=== PATIENT | female | born 1970 | race Two or more races ===

== ENCOUNTER 2017-10-30 11:56 | Inpatient (IN) | payer SELFPAY ==
[~2017-10-30] VITALS: Ht 170.2 cm; Wt 72.1 kg
[2017-10-30 13:05] LABS: Basophils # (auto) 0.1 uL; Eosinophils # (auto) 0.1 uL; Lymphocytes # (auto) 1.8 uL; Red Cell Distribution Width 15.4 % (11.8-14.3)
[2017-10-30 13:06] LABS: Basophils % (auto) 1.3 % (0.0-2.0); Eosinophils % (auto) 1.1 % (0.0-7.0); Hematocrit 46.1 % (36.0-46.0); Lymphocytes % (auto) 15.4 % (10.0-50.0); Mean Corpuscular Hemoglobin 24.9 pg (28.0-32.0); Mean Corpuscular Hgb Conc. 32.6 g/dL (32.0-36.0); Mean Corpuscular Volume 76.6 fL (80.0-100.0); Monocytes # (auto) 0.7 uL; Monocytes % (auto) 6.1 % (0.0-12.0); Neutrophils # (auto) 8.8 uL; Neutrophils % (auto) 76.1 % (37.0-80.0); Nucleated Red Blood Cells % 0.1 %; Platelet Count (auto) 457 10^3/uL (140-450); Red Blood Cells 6.03 10^6/uL (4.0-5.20); White Blood Cell 11.6 10^3/uL (4.4-10.8)
[2017-10-30 13:21] LABS: Albumin 4.3 g/dL (3.4-5.0); Calcium 9.1 mg/dL (8.5-10.1); Magnesium 2.5 mg/dL (1.6-2.6); Potassium 3.7 mmol/L (3.5-5.1)
[2017-10-30 13:26] LABS: Bilirubin, Total 0.5 mg/dL (0.2-1.0); Total Protein 9.2 g/dL (6.4-8.2)
[2017-10-30 14:21] LABS: INR 1.05 (0.9-1.15); Partial Thromboplastin Time 28.3 sec (23.78-33.04); Prothrombin Time 11.2 sec (9.27-12.13)
[2017-10-30] MEDS ORDERED: ONDANSETRON HCL 4 MG/2 ML VIAL IV ONE (15:30)
[2017-10-30] MEDS ORDERED: ASPirin 81 mg TAB PO ONE (15:30)
[2017-10-30] MEDS ORDERED: MORPHINE SULFATE 8mg/ml INJ SDV IV ONE (15:30)
[2017-10-30] MEDS ORDERED: cefTRIAXone 1GM/10ml IVPUSH 10 ML IV ONE (19:00)
[2017-10-30] MEDS ORDERED: ZOLPIDEM TARTRATE 5 MG TAB PO PRN (19:15)
[2017-10-30] MEDS ORDERED: ALUM & MAG HYDROX-SIMETH LIQ(MAALOX) 30 ML PO ONE (19:15)
[2017-10-30] MEDS ORDERED: ONDANSETRON HCL 4 MG/2 ML VIAL IV PRN (19:15)
[2017-10-30] MEDS ORDERED: NITROGLYCERIN 0.4 MG SL TAB SL PRN ×2 (19:15)
[2017-10-30] MEDS ORDERED: MORPHINE SULFATE 8mg/ml INJ SDV IV PRN ×2 (19:15)
[2017-10-30] MEDS ORDERED: HYDROcodone-ACET 10/325MG TAB PO PRN (19:30)
[2017-10-30 19:52] LABS: Urine Bacteria MANY /hpf (None Seen); Urine Blood 1+ /uL (Negative); Urine Mucus FEW (None Seen); Urine Specific Gravity 1.023 (1.001-1.035); Urine WBC 69 /hpf (0 - 5)
[2017-10-30 20:09] LABS: % Iron Saturation 23.8 % (15-50)
[2017-10-30 20:29] VITALS: BP 124/78
[2017-10-30] MEDS: HYDROcodone-ACET 10/325MG TAB PO PRN (20:46)
[2017-10-30] MEDS: SODIUM CHLOR 0.9% PF (SALINE LOCK) 10ML VIAL/SYR IV SCH (22:00)
[2017-10-30] MEDS: ATORVASTATIN 20 MG TAB PO SCH (22:00)
[2017-10-30] MEDS: ENALAPRIL MALEATE 2.5 MG TAB PO SCH (22:00)
[2017-10-30] MEDS: CARVEDILOL 3.125 MG TAB PO SCH (22:00)
[2017-10-31] VITALS (8 sets, daily range): BP systolic 88–104; BP diastolic 53–64
[2017-10-31] MEDS: ALBUTEROL SULF 2.5 MG/0.5ML(0.5%) NEB SOLN NEB SCH ×4 (00:35→18:34)
[2017-10-31] MEDS: IPRATROPIUM BROM 0.5 MG/2.5ML INH SOL NEB SCH ×4 (00:35→18:34)
[2017-10-31] MEDS: HYDROcodone-ACET 10/325MG TAB PO PRN ×2 (02:51→20:43)
[2017-10-31 05:49] LABS: Basophils # (auto) 0.1 uL; Eosinophils # (auto) 0.3 uL; Hemoglobin 13.7 g/dL (12.2-16.2); Monocytes # (auto) 0.9 uL; Nucleated Red Blood Cells % 0.1 %
[2017-10-31 05:53] LABS: Basophils % (auto) 1.2 % (0.0-2.0); Eosinophils % (auto) 3.4 % (0.0-7.0); Hematocrit 40.8 % (36.0-46.0); Lymphocytes # (auto) 2.6 uL; Lymphocytes % (auto) 29.7 % (10.0-50.0); Mean Corpuscular Hemoglobin 25.7 pg (28.0-32.0); Mean Corpuscular Hgb Conc. 33.6 g/dL (32.0-36.0); Mean Corpuscular Volume 76.6 fL (80.0-100.0); Monocytes % (auto) 9.7 % (0.0-12.0); Platelet Count (auto) 407 10^3/uL (140-450); Red Blood Cells 5.33 10^6/uL (4.0-5.20); Red Cell Distribution Width 15.2 % (11.8-14.3); White Blood Cell 8.9 10^3/uL (4.4-10.8)
[2017-10-31] MEDS: SODIUM CHLOR 0.9% PF (SALINE LOCK) 10ML VIAL/SYR IV SCH ×3 (06:17→22:00)
[2017-10-31 06:19] LABS: Albumin 3.8 g/dL (3.4-5.0); BUN/Creatinine Ratio 31.7; Bilirubin, Total 0.4 mg/dL (0.2-1.0); Calcium 8.4 mg/dL (8.5-10.1); Magnesium 2.4 mg/dL (1.6-2.6); Potassium 3.3 mmol/L (3.5-5.1); Total Protein 7.8 g/dL (6.4-8.2)
[2017-10-31] MEDS: ACETAMINOPHEN 325 MG TAB PO PRN ×2 (08:44→18:54)
[2017-10-31] MEDS: cefTRIAXone 1GM/10ml IVPUSH 10 ML IV SCH (08:55)
[2017-10-31] MEDS: ENALAPRIL MALEATE 2.5 MG TAB PO SCH (10:00)
[2017-10-31] MEDS: CARVEDILOL 3.125 MG TAB PO SCH ×2 (10:00→20:48)
[2017-10-31] MEDS: CLOPIDOGREL BISULFATE 75 MG TAB PO SCH (10:20)
[2017-10-31] MEDS: ASPirin 81 mg TAB PO SCH (10:21)
[2017-10-31] MEDS: DOCUSATE SOD 100 MG CAP PO SCH (10:21)
[2017-10-31] MEDS ORDERED: SOD CHL 0.9%/ KCL 20MEQ 1,000 ML IV ONE ×2 (10:45→12:45)
[2017-10-31] MEDS ORDERED: SODIUM CHLORIDE 0.9% 2,000 ML IV ONE (10:45)
[2017-10-31 17:14] LABS: Alcohol, Urine < 3.0 mg/dL (0-5); Amphetamine Screen, Urine NEGATIVE (NEGATIVE); Barbiturate Scree,Urine NEGATIVE (NEGATIVE); Benzodiazephine Screen, Urine NEGATIVE (NEGATIVE); Cannabinoid Screen, Urine NEGATIVE (NEGATIVE); Cocaine Screen, Urine NEGATIVE (NEGATIVE); Opiate Scree,Urine POSITIVE (NEGATIVE); Phencyclidine Screen, Urine NEGATIVE (NEGATIVE)
[2017-10-31] MEDS: ATORVASTATIN 20 MG TAB PO SCH (20:43)
[2017-11-01] MEDS: ALBUTEROL SULF 2.5 MG/0.5ML(0.5%) NEB SOLN NEB SCH ×5 (00:36→23:24)
[2017-11-01] MEDS: IPRATROPIUM BROM 0.5 MG/2.5ML INH SOL NEB SCH ×5 (00:36→23:24)
[2017-11-01] MEDS: ACETAMINOPHEN 325 MG TAB PO PRN ×3 (04:13→15:52)
[2017-11-01 05:53] LABS: Calcium 7.9 mg/dL (8.5-10.1); Potassium 3.6 mmol/L (3.5-5.1)
[2017-11-01 05:56] LABS: BUN/Creatinine Ratio 36.1
[2017-11-01] MEDS: SODIUM CHLOR 0.9% PF (SALINE LOCK) 10ML VIAL/SYR IV SCH ×3 (06:00→22:00)
[2017-11-01 08:00] VITALS: BP 100/53
[2017-11-01] MEDS: cefTRIAXone 1GM/10ml IVPUSH 10 ML IV SCH (08:31)
[2017-11-01] MEDS: CARVEDILOL 3.125 MG TAB PO SCH ×2 (10:00→22:00)
[2017-11-01] MEDS: CLOPIDOGREL BISULFATE 75 MG TAB PO SCH (10:13)
[2017-11-01] MEDS: ASPirin 81 mg TAB PO SCH (10:13)
[2017-11-01] MEDS: DOCUSATE SOD 100 MG CAP PO SCH (10:14)
[2017-11-01 11:50] VITALS: BP 111/68
[2017-11-01] MEDS ORDERED: LORazepam 2MG/ML-1ML VIAL IV ONE (15:15)
[2017-11-01 15:52] VITALS: BP 114/70
[2017-11-01 19:50] VITALS: BP 116/70
[2017-11-01] MEDS: ATORVASTATIN 20 MG TAB PO SCH (22:00)
[2017-11-02] VITALS (7 sets, daily range): BP systolic 90–112; BP diastolic 42–77
[2017-11-02 05:19] LABS: Basophils # (auto) 0.1 uL; Eosinophils # (auto) 0.3 uL; Mean Corpuscular Hemoglobin 25.4 pg (28.0-32.0); Monocytes # (auto) 0.7 uL; Neutrophils # (auto) 4.4 uL
[2017-11-02 05:21] LABS: Eosinophils % (auto) 3.6 % (0.0-7.0); Hematocrit 35.3 % (36.0-46.0); Hemoglobin 11.7 g/dL (12.2-16.2); Lymphocytes # (auto) 1.9 uL; Lymphocytes % (auto) 26.3 % (10.0-50.0); Mean Corpuscular Hgb Conc. 33.1 g/dL (32.0-36.0); Mean Corpuscular Volume 76.5 fL (80.0-100.0); Neutrophils % (auto) 60.1 % (37.0-80.0); Nucleated Red Blood Cells % 0.1 %; Platelet Count (auto) 300 10^3/uL (140-450); Red Blood Cells 4.61 10^6/uL (4.0-5.20); Red Cell Distribution Width 15.1 % (11.8-14.3); White Blood Cell 7.3 10^3/uL (4.4-10.8)
[2017-11-02 05:44] LABS: Anion Gap 5 (5-15); Blood Urea Nitrogen 18 mg/dL (7-18); Calcium 8.1 mg/dL (8.5-10.1); Carbon Dioxide 25 mmol/L (21-32); Chloride 110 mmol/L (98-107); GFR African American 132 mL/min; GFR Non-African American 109 mL/min; Glucose 98 mg/dL (74-106); Potassium 3.7 mmol/L (3.5-5.1); Sodium 140 mmol/L (136-145)
[2017-11-02] MEDS: SODIUM CHLOR 0.9% PF (SALINE LOCK) 10ML VIAL/SYR IV SCH ×3 (06:00→22:15)
[2017-11-02] MEDS: ALBUTEROL SULF 2.5 MG/0.5ML(0.5%) NEB SOLN NEB SCH ×3 (06:20→18:25)
[2017-11-02] MEDS: IPRATROPIUM BROM 0.5 MG/2.5ML INH SOL NEB SCH ×3 (06:20→18:25)
[2017-11-02] MEDS: ACETAMINOPHEN 325 MG TAB PO PRN (08:45)
[2017-11-02] MEDS: CARVEDILOL 3.125 MG TAB PO SCH ×2 (10:00→22:00)
[2017-11-02] MEDS: ASPirin 81 mg TAB PO SCH (10:34)
[2017-11-02] MEDS: DOCUSATE SOD 100 MG CAP PO SCH (10:34)
[2017-11-02] MEDS: CLOPIDOGREL BISULFATE 75 MG TAB PO SCH (10:34)
[2017-11-02] MEDS ORDERED: IBUPROFEN 600 MG TAB PO ONE (16:00)
[2017-11-02] MEDS: CYCLOBENZAPRINE HCL 10 MG TAB PO PRN (20:00)
[2017-11-02] MEDS: ATORVASTATIN 20 MG TAB PO SCH (22:18)
[2017-11-03] MEDS: ALBUTEROL SULF 2.5 MG/0.5ML(0.5%) NEB SOLN NEB SCH ×4 (00:32→19:03)
[2017-11-03] MEDS: IPRATROPIUM BROM 0.5 MG/2.5ML INH SOL NEB SCH ×4 (00:32→19:03)
[2017-11-03] MEDS: CYCLOBENZAPRINE HCL 10 MG TAB PO PRN ×2 (04:42→21:13)
[2017-11-03 05:00] VITALS: BP 116/70
[2017-11-03] MEDS: SODIUM CHLOR 0.9% PF (SALINE LOCK) 10ML VIAL/SYR IV SCH ×3 (05:52→21:48)
[2017-11-03 06:23] LABS: Basophils # (auto) 0.1 uL; Eosinophils # (auto) 0.3 uL; Mean Corpuscular Hgb Conc. 32.7 g/dL (32.0-36.0); Mean Corpuscular Volume 76.9 fL (80.0-100.0); Nucleated Red Blood Cells % 0.1 %
[2017-11-03 06:32] LABS: Basophils % (auto) 1.3 % (0.0-2.0); Eosinophils % (auto) 5.1 % (0.0-7.0); Hematocrit 36.8 % (36.0-46.0); Hemoglobin 12.1 g/dL (12.2-16.2); Lymphocytes # (auto) 1.8 uL; Lymphocytes % (auto) 29.4 % (10.0-50.0); Mean Corpuscular Hemoglobin 25.2 pg (28.0-32.0); Monocytes # (auto) 0.5 uL; Neutrophils # (auto) 3.4 uL; Neutrophils % (auto) 56.2 % (37.0-80.0); Platelet Count (auto) 286 10^3/uL (140-450); Red Blood Cells 4.79 10^6/uL (4.0-5.20); Red Cell Distribution Width 15.1 % (11.8-14.3)
[2017-11-03 06:52] LABS: BUN/Creatinine Ratio 25.8; Calcium 8.5 mg/dL (8.5-10.1); Potassium 3.6 mmol/L (3.5-5.1)
[2017-11-03 09:00] VITALS: BP 107/66
[2017-11-03] MEDS: ACETAMINOPHEN 325 MG TAB PO PRN ×3 (09:53→21:09)
[2017-11-03] MEDS ORDERED: POTASSIUM CHL 20 Meq TABLET PO ONE (10:15)
[2017-11-03] MEDS: DOCUSATE SOD 100 MG CAP PO SCH (10:24)
[2017-11-03] MEDS: ASPirin 81 mg TAB PO SCH (10:24)
[2017-11-03] MEDS: CARVEDILOL 3.125 MG TAB PO SCH ×2 (10:25→22:00)
[2017-11-03] MEDS: CLOPIDOGREL BISULFATE 75 MG TAB PO SCH (10:26)
[2017-11-03 13:00] VITALS: BP 113/65
[2017-11-03] MEDS: LORazepam 0.5 MG TAB PO PRN (15:37)
[2017-11-03 17:00] VITALS: BP 98/58
[2017-11-03] MEDS: ATORVASTATIN 20 MG TAB PO SCH (21:09)
[2017-11-03 21:58] VITALS: BP 117/57
[2017-11-04] MEDS: ALBUTEROL SULF 2.5 MG/0.5ML(0.5%) NEB SOLN NEB SCH ×4 (01:10→18:53)
[2017-11-04] MEDS: IPRATROPIUM BROM 0.5 MG/2.5ML INH SOL NEB SCH ×4 (01:10→18:54)
[2017-11-04 04:50] VITALS: BP 121/65
[2017-11-04] MEDS: CYCLOBENZAPRINE HCL 10 MG TAB PO PRN ×2 (05:42→14:47)
[2017-11-04] MEDS: SODIUM CHLOR 0.9% PF (SALINE LOCK) 10ML VIAL/SYR IV SCH ×2 (05:49→14:13)
[2017-11-04 06:13] LABS: Basophils # (auto) 0.1 uL; Eosinophils # (auto) 0.3 uL; Hemoglobin 12.6 g/dL (12.2-16.2); Neutrophils # (auto) 4.7 uL
[2017-11-04 06:16] LABS: Basophils % (auto) 1.2 % (0.0-2.0); Eosinophils % (auto) 3.4 % (0.0-7.0); Hematocrit 38.5 % (36.0-46.0); Lymphocytes # (auto) 1.8 uL; Lymphocytes % (auto) 24.3 % (10.0-50.0); Mean Corpuscular Hemoglobin 25.3 pg (28.0-32.0); Mean Corpuscular Hgb Conc. 32.8 g/dL (32.0-36.0); Mean Corpuscular Volume 77.1 fL (80.0-100.0); Monocytes # (auto) 0.6 uL; Monocytes % (auto) 7.8 % (0.0-12.0); Neutrophils % (auto) 63.3 % (37.0-80.0); Nucleated Red Blood Cells % 0.1 %; Platelet Count (auto) 323 10^3/uL (140-450); Red Blood Cells 4.99 10^6/uL (4.0-5.20); Red Cell Distribution Width 15.2 % (11.8-14.3); White Blood Cell 7.4 10^3/uL (4.4-10.8)
[2017-11-04 06:32] LABS: Calcium 8.5 mg/dL (8.5-10.1); Potassium 4.2 mmol/L (3.5-5.1)
[2017-11-04 06:44] LABS: BUN/Creatinine Ratio 29.2
[2017-11-04 09:00] VITALS: BP 111/57
[2017-11-04] MEDS: CARVEDILOL 3.125 MG TAB PO SCH (09:47)
[2017-11-04] MEDS: ASPirin 81 mg TAB PO SCH (10:14)
[2017-11-04] MEDS: CLOPIDOGREL BISULFATE 75 MG TAB PO SCH (10:15)
[2017-11-04] MEDS: DOCUSATE SOD 100 MG CAP PO SCH (10:15)
[2017-11-04 10:24] VITALS: BP 131/79
[2017-11-04 13:24] VITALS: BP 120/89
[2017-11-04 17:07] VITALS: BP 119/76
[2017-11-04 17:42] VITALS: BP 117/57
[2017-11-04] MEDS: LORazepam 0.5 MG TAB PO PRN (18:49)
== END 2017-11-04 19:10 | disposition home or self-care (01) | DRG 313 ==
LOC: ER 12:30 → TELE 12:31 → DOU IN ICU 10-31 02:13 → TELE-WESTW 11-02 18:55
PROVIDERS: ADMIT Internal Medicine; ATTEND Internal Medicine
DX: R07.89 Other chest pain (principal); N17.0 Acute kidney failure with tubular necrosis; N39.0 Urinary tract infection, site not specified; D75.1 Secondary polycythemia; N18.3 Chronic kidney disease, stage 3 (moderate); E87.6 Hypokalemia; J20.9 Acute bronchitis, unspecified; J45.909 Unspecified asthma, uncomplicated; D72.829 Elevated white blood cell count, unspecified; R51 Headache; D47.3 Essential (hemorrhagic) thrombocythemia; Z87.891 Personal history of nicotine dependence
CPT/HCPCS: 36415; 70450; 71045; 74176; 80048; 80053; 80061; 80307; 81001; 81025; 83540; 83550; 83735; 83880; 84443; 84484; 85025; 85379; 85610; 85730; 87081; 87086; 87804; 93005; 93017; 93306; 94640; 96361; 96374; 96375; J2270; J2405